=== PATIENT | male | born 1990 | race Two or more races ===

== ENCOUNTER 2017-12-17 14:24 | Emergency (ER) | payer OTHER ==
[~2017-12-17] VITALS: Ht 185.4 cm; Wt 77.1 kg
[2017-12-17 14:28] VITALS: BP 115/67
== END 2017-12-17 16:53 | disposition home or self-care (01) ==
LOC: ER 14:28
DX: S02.2XXA Fracture of nasal bones, initial encounter for closed fracture (principal); W18.09XA Striking against other object with subsequent fall, initial encounter; Y93.89 Activity, other specified; Y92.89 Other specified places as the place of occurrence of the external cause; Y99.8 Other external cause status
CPT/HCPCS: 70486; 99284; A4606; Z7610